=== PATIENT | female | born 1990 | race Caucasian/White ===

== ENCOUNTER 2016-08-07 11:55 | Emergency (ER) | payer MEDICAID ==
[2016-08-07 12:02] VITALS: BP 135/68
--- NOTE | 2016-08-07 12:12 | ER Document Report ---
ED Medical Screen (RME) - General Chief Complaint: Chemical Exposure in Eye Stated Complaint: CHEMICAL IN LEFT EYE/IRRITATION Time Seen by Provider: 08/07/16 12:08 Mode of Arrival: Ambulatory Information source: Patient TRAVEL OUTSIDE OF THE [place] IN LAST 30 DAYS: No - HPI Patient complains to provider of: Eye redness, possible chemical exposure Onset: Yesterday Notes: 08/07/16 12:11 Patient is a 26-year-old female who presents to the emergency room complaining of left eye swelling with discharge and pain, states yesterday while at work a chemical was being sprayed into a bucket and she thinks she felt a drop going to her eye, she rinsed it out quite well, however a few hours later she had some purulent discharge coming from the eye and when she woke up this morning her eye was swollen shut, she does also report that she has been feeling under the weather lately with a sore throat, body aches and chills - Related Data Allergies/Adverse Reactions: albuterol [From Ventolin] Allergy (Intermediate, Verified 06/16/15 20:23) welts albuterol sulfate [From Ventolin] Allergy (Intermediate, Verified 06/16/15 20:23 ) welts Past Medical History Pulmonary Medical History: Reports: Hx Asthma Renal/ Medical History: Denies: Hx Peritoneal Dialysis Past Surgical History: Reports: Hx Tonsillectomy - Immunizations Hx Diphtheria, Pertussis, Tetanus Vaccination: Yes Physical Exam - Vital signs Vitals: Temp Pulse Resp BP Pulse Ox 98.5 F 97 16 135/68 H 100 08/07/16 11:59 08/07/16 11:59 08/07/16 11:59 08/07/16 11:59 08/07/16 11:59 Course - Vital Signs Vital signs: Temp Pulse Resp BP Pulse Ox 98.5 F 97 16 135/68 H 100 08/07/16 11:59 08/07/16 11:59 08/07/16 11:59 08/07/16 11:59 08/07/16 11:59
[2016-08-07] MEDS ORDERED: TETRACAINE HCL 0.5% OPH SOLN 2 ML OS ONE (12:30)
[2016-08-07] MEDS ORDERED: POLYMYXIN B SULFATE/TMP OPH SOLN 10 ML OS ONE (13:17)
--- NOTE | 2016-08-07 13:21 | ER Document Report ---
ED Eye Complaint - General Chief Complaint: Chemical Exposure in Eye Stated Complaint: CHEMICAL IN LEFT EYE/IRRITATION Time Seen by Provider: 08/07/16 12:08 Mode of Arrival: Ambulatory Information source: Patient Notes: Patient is a 26-year-old female who presents to the ER today for left eye irritation, redness after exposure to a chemical called RJ8 that she was using to clean homes with yesterday. She states that it was just "in the air" and did not directly come in contact with her eye that she knows of, but hours after using it she started to get some irritation, redness and watering. She states that she went home and flushed out multiple times. She does wear glasses but no contacts. She states that she woke up today with green discharge in her eye was matted shut. She denies any fevers or chills. TRAVEL OUTSIDE OF THE [place] IN LAST 30 DAYS: No - Related Data Allergies/Adverse Reactions: albuterol [From Ventolin] Allergy (Intermediate, Verified 06/16/15 20:23) welts albuterol sulfate [From Ventolin] Allergy (Intermediate, Verified 06/16/15 20:23 ) welts Past Medical History - General Information source: Patient - Social History Smoking Status: Never Smoker Chew tobacco use (# tins/day): No Frequency of alcohol use: None Drug Abuse: None Family History: None Patient has suicidal ideation: No Patient has homicidal ideation: No Pulmonary Medical History: Reports: Hx Asthma Renal/ Medical History: Denies: Hx Peritoneal Dialysis Past Surgical History: Reports: Hx Tonsillectomy - Immunizations Hx Diphtheria, Pertussis, Tetanus Vaccination: Yes Hx Pneumococcal Vaccination: 05/23/12 Review of Systems - Review of Systems Constitutional: No symptoms reported EENT: See HPI Cardiovascular: No symptoms reported Respiratory: No symptoms reported Gastrointestinal: No symptoms reported Genitourinary: No symptoms reported Female Genitourinary: No symptoms reported Musculoskeletal: No symptoms reported Skin: No symptoms reported Hematologic/Lymphatic: No symptoms reported Neurological/Psychological: No symptoms reported Physical Exam - Vital signs Vitals: Temp Pulse Resp BP Pulse Ox 98.5 F 97 16 135/68 H 100 08/07/16 11:59 08/07/16 11:59 08/07/16 11:59 08/07/16 11:59 06/18/17 11:59 - Notes Notes: PHYSICAL EXAMINATION: GENERAL: Well-appearing and in no acute distress. HEAD: Atraumatic, normocephalic. EYES: Pupils equal round and reactive to light, extraocular movements intact, sclera anicteric, left conjunctivae erythematous, watering NECK: Normal range of motion, supple without lymphadenopathy LUNGS: CTAB and equal. No wheezes rales or rhonchi. HEART: Regular rate and rhythm without murmurs EXTREMITIES: Normal range of motion, no pitting edema. No cyanosis. NEUROLOGICAL: Cranial nerves grossly intact. Normal sensory/motor exams. PSYCH: Normal mood, normal affect. SKIN: Warm, Dry, normal turgor, no rashes or lesions noted Course - Re-evaluation Re-evalutation: 08/07/16 13:20 PH was 7 on litmus paper, of left eye, fluorescein stain revealed no defect, foreign body, patient says that it is not painful just irritated. I will place her on antibiotic eyedrops, she'll be sent home with the bottle from the ER, but with normal pH and since it has been over 24 hours since the injury I do not see the purpose of flushing it with Binu lens today. 08/07/16 13:22 - Vital Signs Vital signs: Temp Pulse Resp BP Pulse Ox 98.5 F 97 16 135/68 H 100 08/07/16 11:59 08/07/16 11:59 08/07/16 11:59 08/07/16 11:59 08/07/16 11:59 Procedures - Eye Procedure Left Time completed: 13:20 Eye Irrigated w/ Saline (ccs): 30 Alcaine Drops Administered: Yes Acular drops administered: Left Fluorescein applied: Left Antibiotic Oinment/Drps Admin: Left eye Discharge - Discharge Clinical Impression: Chemical exposure of eye Condition: Stable Disposition: HOME, SELF-CARE Instructions: Chemical in the Eye ([facility]) Additional Instructions: Return immediately for any new or worsening symptoms. Follow up with primary care provider, call tomorrow to make followup appointment. Forms: Return to Work Referrals: EFE SAUNDERS MD [Primary Care Provider] - Follow up as needed
== END 2016-08-07 13:48 | disposition home or self-care (01) ==
LOC: ER 11:55
DX: Z77.098 Contact with and (suspected) exposure to other hazardous, chiefly nonmedicinal, chemicals (principal); H57.8 Other specified disorders of eye and adnexa; J45.909 Unspecified asthma, uncomplicated; Z88.8 Allergy status to other drugs, medicaments and biological substances
CPT/HCPCS: 99283; J3490 ×2

== ENCOUNTER 2017-07-30 08:32 | Inpatient (IN) | payer MEDICAID ==
[2017-07-30] MEDS ORDERED: RINGERS SOLUTION,LACTATED 300 ML IV ONE (08:53)
[2017-07-30] MEDS ORDERED: DINOPROSTONE 10 MG VAGINAL INSERT.SR PV PRN (08:53)
[2017-07-30] MEDS ORDERED: OXYTOCIN/NORMAL SALINE 20 UNIT/1,000 ML RTUINJ IV PRN ×2 (08:53→18:14)
[2017-07-30] MEDS ORDERED: RINGERS SOLUTION,LACTATED 1,000 ML IV PRN (08:53)
[2017-07-30] MEDS ORDERED: OXYTOCIN/NORMAL SALINE 20 UNIT/1,000 ML RTUINJ ONE (10:02)
[2017-07-30 10:09] LABS: ABSOLUTE EOSINOPHILS # (AUTO) 0.1 10^3/uL (0.0-0.6); ABSOLUTE LYMPHOCYTES (AUTO) 2.8 10^3/uL (0.5-4.7); ABSOLUTE MONOCYTES (AUTO) 0.5 10^3/uL (0.1-1.4); ABSOLUTE NEUT (AUTO) 6.4 10^3/uL (1.7-8.2); BASOPHILS % (AUTO) 0.4 % (0-2); EOSINOPHILS % (AUTO) 0.6 % (0-6); HEMATOCRIT 30.8 % (36.0-47.0); HEMOGLOBIN 10.1 g/dL (12.0-15.5); LYMPHOCYTES % (AUTO) 28.6 % (13-45); MEAN CORPUSCULAR HEMOGLOBIN 26.1 pg (27.0-33.4); MEAN CORPUSCULAR VOLUME 79 fl (80-97); MONOCYTES % (AUTO) 4.9 % (3-13); PLATELET COUNT 151 10^3/uL (150-450); RED BLOOD COUNT 3.88 10^6/uL (3.72-5.28); RED CELL DISTRIBUTION WIDTH 15.1 % (11.5-14.0); SEGMENTED NEUTROPHILS % (AUTO) 65.5 % (42-78); TOTAL CELLS COUNTED % (AUTO) 100 %; WHITE BLOOD COUNT 9.8 10^3/uL (4.0-10.5)
[2017-07-30 10:15] LABS: APPEARANCE,URINE SLIGHTLY-CLOUDY; BILIRUBIN,URINE NEGATIVE (NEGATIVE); COLOR,URINE YELLOW; GLUCOSE, URINE NEGATIVE (NEGATIVE); KETONES,URINE NEGATIVE (NEGATIVE); LEUKOCYTE ESTERASE,URINE TRACE (NEGATIVE); NITRITE,URINE NEGATIVE (NEGATIVE); PROTEIN,URINE NEGATIVE (NEGATIVE); URINE SPECIFIC GRAVITY 1.018
[2017-07-30 10:33] LABS: URINE AMPHETAMINES SCREEN NEGATIVE; URINE BARBITURATES SCREEN NEGATIVE; URINE BENZODIAZEPINES SCREEN NEGATIVE; URINE COCAINE SCREEN NEGATIVE; URINE MARIJUANA (THC) SCREEN NEGATIVE; URINE METHADONE SCREEN NEGATIVE; URINE PHENCYCLIDINE SCREEN NEGATIVE
[2017-07-30] MEDS ORDERED: MISOPROSTOL 0.2 MG TABLET ONE (13:44)
[2017-07-30] MEDS ORDERED: LIDOCAINE 1% INJ-PF (10 MG/ML) 30 ML SDV ONE (13:44)
[2017-07-30] MEDS ORDERED: ZOLPIDEM TARTRATE 5 MG TABLET PO PRN (18:14)
[2017-07-30] MEDS ORDERED: DIBUCAINE 1% OINTMENT 28 GM TP PRN (18:14)
[2017-07-30] MEDS ORDERED: ACETAMINOPHEN WITH CODEINE #3 TABLET PO PRN ×2 (18:14)
[2017-07-30] MEDS ORDERED: MEASLES,MUMPS&RUBELLA VACC/PF 0.5 ML VIAL SUBCUT PRN (18:14)
[2017-07-30] MEDS ORDERED: DIPH/PERTUSS(ACELL)/TETANUS VAC/PF 0.5 ML SYR (>=10YO) IM PRN (18:14)
[2017-07-30] MEDS ORDERED: BENZOCAINE/MENTHOL AEROSOL SPRAY 56 ML TOP PRN (18:14)
[2017-07-30] MEDS: IBUPROFEN 800 MG TABLET PO SCH (20:56)
[2017-07-31] MEDS: IBUPROFEN 800 MG TABLET PO SCH ×3 (07:24→21:28)
[2017-07-31 08:27] LABS: HEMATOCRIT 28.9 % (36.0-47.0); HEMOGLOBIN 9.6 g/dL (12.0-15.5); MEAN CORPUSCULAR HEMOGLOBIN 26.3 pg (27.0-33.4); MEAN CORPUSCULAR HGB CONC 33.2 g/dL (32.0-36.0); MEAN CORPUSCULAR VOLUME 79 fl (80-97); PLATELET COUNT 153 10^3/uL (150-450); RED BLOOD COUNT 3.63 10^6/uL (3.72-5.28); RED CELL DISTRIBUTION WIDTH 15.3 % (11.5-14.0); WHITE BLOOD COUNT 16.2 10^3/uL (4.0-10.5)
--- NOTE | 2017-07-31 10:10 | PDOC PROGRESS REPORT ---
Subjective-OB Progress Note for:: 07/31/17 Subjective: Doing well, hsb at [facility], , no c/o, voiding, home in AM Physical Exam (OB) Vital Signs: Temp Pulse Resp BP Pulse Ox 98.0 F 74 16 125/76 98 07/31/17 08:10 07/31/17 08:10 07/31/17 08:10 07/31/17 08:10 07/31/17 08:10 Intake & Output 07/30/17 07/31/17 08/01/17 06:59 06:59 06:59 Weight 89.7 kg - PIH/Pre-Eclampsia Headache: Absent Epigastric Pain: No Visual Changes: No - Lochia Lochia Amount: Small 10-25 ml Lochia Color: Rubra/Red - Abdomen Description: Tender, Soft Hernia Present: No Fundal Description: Firm, Midline Fundal Height: u/u - u/2 Objective-Diagnostic Laboratory: 07/31/17 07:07 07/30/17 07/30/17 07/30/17 08:59 09:45 09:45 WBC 9.8 RBC 3.88 Hgb 10.1 L Hct 30.8 L MCV 79 L MCH 26.1 L MCHC 33.0 RDW 15.1 H Plt Count 151 Seg Neutrophils % 65.5 Lymphocytes % 28.6 Monocytes % 4.9 Eosinophils % 0.6 Basophils % 0.4 Absolute Neutrophils 6.4 Absolute Lymphocytes 2.8 Absolute Monocytes 0.5 Absolute Eosinophils 0.1 Absolute Basophils 0.0 Urine Color YELLOW Urine Appearance SLIGHTLY-CLOUDY Urine pH 6.0 Ur Specific [place] 1.018 Urine Protein NEGATIVE Urine Glucose (UA) NEGATIVE Urine Ketones NEGATIVE Urine Blood NEGATIVE Urine Nitrite NEGATIVE Ur Leukocyte Esterase TRACE H Blood Type A POSITIVE Antibody Screen NEGATIVE 07/31/17 07:07 WBC 16.2 H RBC 3.63 L Hgb 9.6 L Hct 28.9 L MCV 79 L MCH 26.3 L MCHC 33.2 RDW 15.3 H Plt Count 153 Seg Neutrophils % Lymphocytes % Monocytes % Eosinophils % Basophils % Absolute Neutrophils Absolute Lymphocytes Absolute Monocytes Absolute Eosinophils Absolute Basophils Urine Color Urine Appearance Urine pH Ur Specific [place] Urine Protein Urine Glucose (UA) Urine Ketones Urine Blood Urine Nitrite Ur Leukocyte Esterase Blood Type Antibody Screen Assessment and Plan(PN) - Assessment and Plan (1) History of PCR DNA positive for HSV2 Is this a current diagnosis for this admission?: Yes (2) Vaginal delivery Is this a current diagnosis for this admission?: Yes (3) Anemia affecting Qualifiers: Trimester: third trimester Qualified Code(s): O99.013 - Anemia complicating , third trimester Is this a current diagnosis for this admission?: Yes - Time Spent with Patient Time with patient: Less than 15 minutes Medications reviewed and adjusted accordingly: Yes - Disposition Anticipated Discharge: Home Within: within 24 hours
[2017-07-31] MEDS: DOCUSATE SODIUM 100 MG CAPSULE PO SCH ×2 (10:31→18:01)
[2017-07-31] MEDS: SENNOSIDES/DOCUSATE 8.6-50 MG 1 EACH TABLET PO SCH (10:31)
[2017-07-31] MEDS: PRENATAL VITAMIN W DHA CAPSULE PO SCH (10:32)
[2017-07-31] MEDS: FERROUS SULFATE 325 MG TABLET PO SCH ×2 (11:25→18:02)
[2017-08-01] MEDS: IBUPROFEN 800 MG TABLET PO SCH (05:47)
[2017-08-01 09:33] VITALS: BP 124/64
[2017-08-01] MEDS: FERROUS SULFATE 325 MG TABLET PO SCH (09:46)
--- NOTE | 2017-08-01 10:16 | PDOC DISCHARGE SUMMARY ---
Final Diagnosis Discharge Date: 08/01/17 - Final Diagnosis (1) Anemia affecting Is this a current diagnosis for this admission?: Yes (2) History of PCR DNA positive for HSV2 Is this a current diagnosis for this admission?: Yes (3) Vaginal delivery Is this a current diagnosis for this admission?: Yes Discharge Data - Discharge Medication Prescriptions: Docusate Sodium [Colace 100 mg Capsule] 100 mg PO BID #60 capsule Ibuprofen [Motrin 800 mg Tablet] 800 mg PO Q8 #60 tablet Home Medications: Vit/Iron Fum/Folic AC [ Tablet] 1 each PO DAILY 06/16/15 Valacyclovir HCl [Valtrex 500 mg Tablet] 500 mg PO BID 07/30/17 Docusate Sodium [Colace 100 mg Capsule] 100 mg PO BID #60 capsule 08/01/17 Ibuprofen [Motrin 800 mg Tablet] 800 mg PO Q8 #60 tablet 08/01/17 Gestational Age: 40 Reason(s) for Admission: Induction of Labor Procedures: NST Intrapartum Procedure(s): Spontaneous Vaginal Delivery - Data Baby 1 Male at 1 minute: 8 at 5 minutes: 9 Weight: 3.685 kg Home with Mother: Yes Complications: No - Diagnosis Test Laboratory: Temp Pulse Resp BP Pulse Ox 98 F 78 20 124/64 99 08/01/17 08:33 08/01/17 08:33 08/01/17 08:33 08/01/17 08:33 08/01/17 08:33 07/30/17 07/30/17 07/31/17 08:59 09:45 07:07 RBC 3.88 3.63 L Hgb 10.1 L 9.6 L Hct 30.8 L 28.9 L Urine Opiates Screen NEGATIVE - Discharge information/Instructions Discharge Activity: Activity As Tolerated, Pelvic Rest, No tub bath Discharge Diet: Regular Disposition: HOME, SELF-CARE Follow up with: [facility] in: 4, Weeks
[2017-08-01] MEDS: PRENATAL VITAMIN W DHA CAPSULE PO SCH (11:05)
[2017-08-01] MEDS: SENNOSIDES/DOCUSATE 8.6-50 MG 1 EACH TABLET PO SCH (11:05)
[2017-08-01] MEDS: DOCUSATE SODIUM 100 MG CAPSULE PO SCH (11:06)
--- NOTE | 2017-08-02 18:38 | Delivery Summary ---
Del Sum A-C Datetime Report Generated by CPN: 08/02/2017 18:38 DELIVERY PERSONNEL DELIVERY PERSONNEL: [id number] Delivery Doctor:: Archana Rodriguez CNM Labor and Delivery Nurse:: Rama Mckeon RNcoding clerk Nurse:: Lisseth Hurst RN Superintendent Recreation/BENCH INSPECTOR: Brien Douglas, DIRECTOR STUDENT UNION MATERNAL INFORMATION Delivery Anesthesia: None Medications After Delivery: Pitocin Drip 20 Units/1000ml NSS Maternal Complications: None Provider Comments: of vaible male over intact perineum, head, shoulders, and body delivered without difficulty, with spontaneous cry and respirations, to maternal abdomen, cord clamped X2 and cut free after 2 min delay, spontaneous delivery of placenta, appears intact, 3 VC, vagina and perineum inspected, no lacerations noted, mother and in stable condition, routine pp care. LABOR SUMMARY EDC: 07/30/2017 00:00 No. Babies in Womb: 1 Attempted: No Labor Anesthesia: None LABOR INFORMATION Reason for Induction: Other Reason for Induction- Other: elective, previous precip. Onset of Labor: 07/30/2017 12:52 Complete Dilatation: 07/30/2017 17:57 Cervical Ripening Agents: Other Other Ripening Agents: [place] Bul[place] Oxytocin: Induction Group B Beta Strep: Negative Antibiotics # of Doses: 0 Antibiotics Time of Last Dose: n/a Name of Antibiotic Given: n/a Steroids Given: None Reason Steroids Not Administered: Not Applicable MEMBRANES Membranes Rupture Method: Artificial Rupture of Membranes: 07/30/2017 12:52 Length of Rupture (hr): 5.17 Amniotic Fluid Color: Clear Amniotic Fluid Amount: Moderate Amniotic Fluid Odor: Normal STAGES OF LABOR Stage 1 hr: 5 Stage 1 min: 5 Stage 2 hr: 0 Stage 2 min: 5 Stage 3 hr: 0 Stage 3 min: 5 Total Time in Labor hr: 5 Total Time in Labor min: 15 VAGINAL DELIVERY Episiotomy: None Laceration #1: None Laceration Extension #1: N/A Laceration Repair: Not Applicable Sponge Count Correct: N/A Sharps Count Correct: N/A CSECTION DELIVERY Primary Indication: N/A Secondary Indication: N/A CSection Urgency: N/A CSection Incidence: N/A Labor: N/A Elective: N/A CSection Incision: N/A BABY A INFORMATION Delivery Date/Time: 07/30/2017 18:02 Method of Delivery: Vaginal Born in Route : No : N/A Forceps: N/A Vacuum Extraction: N/A Shoulder Dystocia : No PRESENTATION/POSITION BABY A Presentation: Cephalic Cephalic Presentation: Vertex Vertex Position: Right Occipital Anterior Breech Presentation: N/A PLACENTA INFORMATION BABY A Placenta Delivery Time : 07/30/2017 18:07 Placenta Method of Delivery: Spontaneous Placenta Status: Delivered SCORES BABY A Heart Rate 1 min: >100 bpm Resp Effort 1 min: Good Cry Reflex Irritability 1 min: Cough or Sneeze or Pulls Away Muscle Tone 1 min: Active Motion Color 1 min: Blue/Pale Resuscitation Effort 1 min: Tactile Stimulation SCORE 1 MIN: 8 Heart Rate 5 min: >100 bpm Resp Effort 5 min: Good Cry Reflex Irritability 5 min: Cough or Sneeze or Pulls Away Muscle Tone 5 min: Active Motion Color 5 min: Body [place], Extremities Blue Resuscitation Effort 5 min: Tactile Stimulation SCORE 5 MIN: 9 INFORMATION BABY A Gestational Age at Delivery: 40.0 Gestational Status: Full Term- 39- 40.6 Weeks Infant Outcome : Liveborn Condition : Stable Infant Sex: Male IDENTIFICATION BABY A Verification Date/Time: 07/30/2017 19:09 ID Band Number: [id number] Mother's Name Verified: Yes RN Verifying : K. Jef, RN Additional Verifying Personnel: ALyly Mckeon, RN WEIGHT/LENGTH BABY A Birthweight (gm): 3690 Infant Weight (lb): 8 Infant Weight (oz): 2 Length (in): 19.00 Length (cm): 48.26 CORD INFORMATION BABY A No. Cord Vessels: 3 Nuchal Cord : N/A Cord Blood Taken: Yes-For Storage (Mom's Blood type +) Suction: None ASSESSMENT BABY A Complications: None Physical Findings at Delivery: Within Normal Limits Infant Respirations: Appears Normal Skin to Skin: Yes Food And Beverage Service Manager/ALS Called : No Care By: H. Natali, RN Transferred To: Remains with Mother BABY B INFORMATION : N/A SIGNATURES Assignment: Renetta Roy MD Signature: with User ID: [email or web address] : with User ID: [email or web address]
--- NOTE | 2017-08-02 18:39 | Admission Physical ---
Datetime Report Generated by CPN: 08/02/2017 18:39 CURRENT ADMISSION Hx Assessment: The History has been Reviewed and is Current Chief Complaint: Uterine Contractions Indication for Induction: Not Applicable Admit Impression : Term, Intrauterine ; No Active Labor; Intact Membranes; Induction of Labor Admit Plan: Admit to Unit; Initiate Labor Augmentation Protocol ALLERGIES Medication Allergies: Yes Medication Allergies: albuterol sulfate/MO/welts (07/30/2017); albuterol/MO/welts (07/30/2017) Medication Allergies: albuterol sulfate/MO/welts (06/16/2015); albuterol/MO/welts (06/16/2015) Medication Allergies: Ventolin (hives) Latex: No Latex Allergies Food Allergies: None Environmental Allergies: None OBSTETRICAL HISTORY EDC: 07/30/2017 00:00 : 3 Para: 2 Term: 2 : 0 SAB: 0 IAB: 0 Ectopic: 0 Livin Cesareans: 0 VBACs: 0 Multiple Births: 0 Gestational Diabetes: No Rh Sensitization: No Incompetent Cervix: No YESSICA: No Infertility: No ART Treatment: No Uterine Anomaly: No IUGR: No Hx Previous C/S: No Macrosomia: No Hx Loss/Stillborn: No PIH: No Hx : No Placenta Previa/Abruption: No Depression/PP Depression: No PTL/PROM: No Post Hemorrhage: No Current Procedures: Ultrasound Obstetrical History Comments: G1- @ 39.3 wks viable female G2- @ 42 wks viable female G3- Current SEE RECORDS Alcohol: No Marijuana : No Cocaine: No Other Illicit Drugs: No Cigarettes: Never Smoker. [id number] MEDICAL HISTORY Diabetes: No Blood Transfusion: No Pulmonary Disease (Asthma, TB): Yes Breast Disease: No Hypertension: No Computer Assembler Surgery: No Heart Disease: No Hosp/Surgery: Yes Autoimmune Disorder: No Anesthetic Complications: No Kidney Disease: Yes Abnormal Pap Smear: Yes Neuro/Epilepsy: No Psychiatric Disorders: No Other Medical Diseases: No Hepatitis/Liver Disease: No Significant Family History: No Varicosities/Phlebitis: No Trauma/Violence : No Thyroid Dysfunction: No Medical History Comments: Hx: UTI and pyelo, anxiety no meds, asthma, tonsilectomy in 2001 INFECTIOUS HISTORY Gonorrhea: Yes Genital Herpes: Yes Chlamydia: No Tuberculosis: No Syphilis: No Hepatitis: No HIV/AIDS Exposure: No Rash or Viral Illness: No HPV: No Infectious History Comments: patient currently taking Valtrex, Positive Gonorrhea 2013 PHYSICAL EXAM General: Normal HEENT: Normal Neurologic: Normal Thyroid: Deferred Heart: Normal Lungs: Normal Breast: Normal Back: Normal Abdomen: Normal Genitourinary Exam: Normal Extremities: Normal DTRs: Normal Pelvic Type: Adequate Vital Signs: Reviewed VAGINAL EXAM Dilatation: 6 Dilatation: 1 Effacement: 60 Effacement: 80 Station: -1 Station: -2 Contraction Comments: 2-4 Contraction Comments: irregular MEMBRANES Membranes: Intact Membranes: Intact FETUS A EGA: 40.0 Monitoring: External US FHR Comments: awaiting nst Estimated Weight (gm): 4200 Presentation: Vertex Admit Comment: Admit to L _ D, labor augmentation See record HSV, on valtrex, no lesions GBS neg Cooks cath, pitocin anticipate PLANS FOR LABOR AND DELIVERY Labor and Delivery: None Pain Management: Natural Feeding Preference: Breast Benefit of Breast Feed Discussed: Yes INFORMED CONSENT Informed Consent Obtained: Vaginal Delivery Informed Consent Obtained: Induction of Labor Assignment: Renetta Roy MD Signature: with User ID: [email or web address] : with User ID: [email or web address]
--- NOTE | 2017-08-02 18:41 | Admission Physical ---
Datetime Report Generated by CPN: 08/02/2017 18:41 CURRENT ADMISSION Hx Assessment: The History has been Reviewed and is Current Chief Complaint: Uterine Contractions Indication for Induction: Not Applicable Admit Impression : Term, Intrauterine ; No Active Labor; Intact Membranes; Induction of Labor Admit Plan: Admit to Unit; Initiate Labor Augmentation Protocol ALLERGIES Medication Allergies: albuterol sulfate/MO/welts (07/30/2017); albuterol/MO/welts (07/30/2017) Medication Allergies: albuterol sulfate/MO/welts (06/16/2015); albuterol/MO/welts (06/16/2015) OBSTETRICAL HISTORY EDC: 07/30/2017 00:00 : 3 Para: 2 Term: 2 : 0 SAB: 0 IAB: 0 Ectopic: 0 Livin Cesareans: 0 VBACs: 0 Multiple Births: 0 PHYSICAL EXAM General: Normal HEENT: Normal Neurologic: Normal Thyroid: Deferred Heart: Normal Lungs: Normal Breast: Normal Back: Normal Abdomen: Normal Genitourinary Exam: Normal Extremities: Normal DTRs: Normal Pelvic Type: Adequate Vital Signs: Reviewed VAGINAL EXAM Dilatation: 1 Effacement: 80 Station: -2 Contraction Comments: irregular MEMBRANES Membranes: Intact FETUS A Monitoring: External US FHR Comments: awaiting nst Estimated Weight (gm): 4200 Presentation: Vertex Admit Comment: Admit to L _ D, labor augmentation See record HSV, on valtrex, no lesions GBS neg Cooks cath, pitocin anticipate INFORMED CONSENT Assignment: Renetta Roy, MD Signature: with User ID: [email or web address] : with User ID: [email or web address]
--- NOTE | 2017-08-02 18:46 | Admission Physical ---
Datetime Report Generated by CPN: 08/02/2017 18:46 CURRENT ADMISSION Hx Assessment: The History has been Reviewed and is Current Chief Complaint: Uterine Contractions Indication for Induction: Not Applicable Admit Impression : Term, Intrauterine ; No Active Labor; Intact Membranes; Induction of Labor Admit Plan: Admit to Unit; Initiate Labor Augmentation Protocol ALLERGIES Medication Allergies: albuterol sulfate/MO/welts (07/30/2017); albuterol/MO/welts (07/30/2017) Medication Allergies: albuterol sulfate/MO/welts (06/16/2015); albuterol/MO/welts (06/16/2015) OBSTETRICAL HISTORY EDC: 07/30/2017 00:00 : 3 Para: 2 Term: 2 : 0 SAB: 0 IAB: 0 Ectopic: 0 Livin Cesareans: 0 VBACs: 0 Multiple Births: 0 Gestational Diabetes: No Rh Sensitization: No Incompetent Cervix: No YESSICA: No Infertility: No ART Treatment: No Uterine Anomaly: No IUGR: No Hx Previous C/S: No Macrosomia: No Hx Loss/Stillborn: No PIH: No Hx : No Placenta Previa/Abruption: No Depression/PP Depression: No PTL/PROM: No Post Hemorrhage: No Current Procedures: Ultrasound Obstetrical History Comments: G1- @ 39.3 wks viable female G2- @ 42 wks viable female G3- Current MEDICAL HISTORY Diabetes: No Blood Transfusion: No Pulmonary Disease (Asthma, TB): Yes Breast Disease: No Hypertension: No 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 Heart Disease: No Hosp/Surgery: Yes Autoimmune Disorder: No Anesthetic Complications: No Kidney Disease: Yes Abnormal Pap Smear: Yes Neuro/Epilepsy: No Psychiatric Disorders: No Other Medical Diseases: No Hepatitis/Liver Disease: No Significant Family History: No Varicosities/Phlebitis: No Trauma/Violence : No Thyroid Dysfunction: No Medical History Comments: Hx: UTI and pyelo, anxiety no meds, asthma, tonsilectomy in 2001 INFECTIOUS HISTORY Gonorrhea: Yes Genital Herpes: Yes Chlamydia: No Tuberculosis: No Syphilis: No Hepatitis: No HIV/AIDS Exposure: No Rash or Viral Illness: No HPV: No Infectious History Comments: patient currently taking Valtrex, Positive Gonorrhea 2013 PHYSICAL EXAM General: Normal HEENT: Normal Neurologic: Normal Thyroid: Deferred Heart: Normal Lungs: Normal Breast: Normal Back: Normal Abdomen: Normal Genitourinary Exam: Normal Extremities: Normal DTRs: Normal Pelvic Type: Adequate Vital Signs: Reviewed VAGINAL EXAM Dilatation: 1 Effacement: 80 Station: -2 Contraction Comments: irregular MEMBRANES Membranes: Intact FETUS A Monitoring: External US FHR Comments: awaiting nst Estimated Weight (gm): 4200 Presentation: Vertex Admit Comment: Admit to L _ D, labor augmentation See record HSV, on valtrex, no lesions GBS neg Cooks cath, pitocin anticipate INFORMED CONSENT Assignment: Renetta Roy MD Signature: with User ID: [email or web address] : with User ID: [email or web address]
== END 2017-08-01 13:32 | disposition home or self-care (01) | DRG 774 ==
LOC: LC 08:32 → LR 08:44 → 2S 20:18
PROVIDERS: ADMIT Student in an Organized Health Care Education/Training Program; ATTEND Student in an Organized Health Care Education/Training Program
PROC: 10E0XZZ Delivery of Products of Conception, External Approach (ICD-10-PCS; principal; 2017-07-30)
PROC: 3E033VJ Introduction of Other Hormone into Peripheral Vein, Percutaneous Approach (ICD-10-PCS; 2017-07-30)
PROC: 10907ZC Drainage of Amniotic Fluid, Therapeutic from Products of Conception, Via Natural or Artificial Opening (ICD-10-PCS; 2017-07-30)
PROC: 4A1HXCZ Monitoring of Products of Conception, Cardiac Rate, External Approach (ICD-10-PCS; 2017-07-30)
DX: O99.02 Anemia complicating childbirth (principal); O98.32 Other infections with a predominantly sexual mode of transmission complicating childbirth; A60.04 Herpesviral vulvovaginitis; D64.9 Anemia, unspecified; O99.52 Diseases of the respiratory system complicating childbirth; J45.909 Unspecified asthma, uncomplicated; Z88.8 Allergy status to other drugs, medicaments and biological substances; Z3A.40 40 weeks gestation of pregnancy; Z37.0 Single live birth
CPT/HCPCS: 36415; 80307; 81005; 85025; 85027; 86592; 86850; 86900; 86901; C1726; J2590; J3490

== ENCOUNTER 2017-08-04 00:14 | Emergency (ER) | payer MEDICAID ==
--- NOTE | 2017-08-04 01:22 | ER Document Report ---
ED Breast Problem - General Mode of Arrival: Ambulatory Information source: Patient Notes: Patient is a 27 year old female 5 days post presents to the emergency department complaining of left breast pain and redness. Patient states she is currently breast feeding and has been unable to produce a lot of milk from the left breast, which is also accompanied by pain. Patient states initially she was able to produce approximately 1 ounce of milk from her left breast but is only now able to express a few drops. She further states she is normally able to produce 2 ounces of milk from her right breast. Patient also mentions her nipples being so enlarged that she is currently unable to fit her nipples in her sons mouth, therefore she is primarily pumping. Patient denies any fevers. TRAVEL OUTSIDE OF THE [place] IN LAST 30 DAYS: No <ADAM VELASCO - Last Filed: 08/04/17 04:34> <EVELIN FIGUEREDO - Last Filed: 08/04/17 04:48> - General Chief Complaint: Breast Problem Stated Complaint: LEFT BREAST PAIN Time Seen by Provider: 08/04/17 01:01 - Related Data Allergies/Adverse Reactions: albuterol [From Ventolin] Allergy (Intermediate, Verified 07/30/17 09:06) welts albuterol sulfate [From Ventolin] Allergy (Intermediate, Verified 07/30/17 09:06 ) mark Past Medical History - General Information source: Patient - Social History Smoking Status: Unknown if Ever Smoked Family History: None Patient has suicidal ideation: No Patient has homicidal ideation: No Pulmonary Medical History: Reports: Hx Asthma Renal/ Medical History: Denies: Hx Peritoneal Dialysis Past Surgical History: Reports: Hx Tonsillectomy - Immunizations Hx Diphtheria, Pertussis, Tetanus Vaccination: Yes Hx Pneumococcal Vaccination: 05/23/12 <ADAM VELASCO - Last Filed: 08/04/17 04:34> Review of Systems - Review of Systems Constitutional: No symptoms reported EENT: No symptoms reported Cardiovascular: No symptoms reported Respiratory: No symptoms reported Gastrointestinal: No symptoms reported Genitourinary: No symptoms reported Musculoskeletal: See HPI Skin: See HPI Hematologic/Lymphatic: No symptoms reported Neurological/Psychological: No symptoms reported -: Yes All other systems reviewed and negative <ADAM VELASCO - Last Filed: 08/04/17 04:34> Physical Exam - Vital signs Vitals: Temp Pulse Resp BP Pulse Ox 98.7 F 91 18 154/92 H 98 08/04/17 00:20 08/04/17 00:20 08/04/17 00:20 08/04/17 00:20 08/04/17 00:20 - Notes Notes: GENERAL: Alert, interacts well. No acute distress. HEAD: Normocephalic, atraumatic. EYES: Pupils equal, round, and reactive to light. Extraocular movements intact. ENT: Oral mucosa moist, tongue midline. NECK: Full range of motion. Supple. Trachea midline. CHEST: No respiratory distress. Left breast is tender to palpation, minimal milk is expressed, there is erythema surrounding the entire areola,no streaking. Left breast is semi-firm. Right breast has a small amount of erythema medially. No evidence of a breast abscess. EXTREMITIES: Moves all 4 extremities spontaneously. NEUROLOGICAL: Alert and oriented x3. Normal speech. PSYCH: Normal affect, normal mood. SKIN: Warm, dry, normal turgor. No rashes or lesions noted. <ADAM VELASCO - Last Filed: 08/04/17 04:34> - Vital signs Vitals: Temp Pulse Resp BP Pulse Ox 98.7 F 91 18 154/92 H 98 08/04/17 00:20 08/04/17 00:20 08/04/17 00:20 08/04/17 00:20 08/04/17 00:20 <EVELIN FIGUEREDO - Last Filed: 08/04/17 04:48> Course - Vital Signs Vital signs: Temp Pulse Resp BP Pulse Ox 98.7 F 91 18 154/92 H 98 08/04/17 00:20 08/04/17 00:20 08/04/17 00:20 08/04/17 00:20 08/04/17 00:20 <ADAM VELASCO - Last Filed: 08/04/17 04:34> - Re-evaluation Re-evalutation: 08/04/17 01:26 Consistent with mastitis, discussed techniques for easing the pain of breast- feeding, encouraged frequent pumping and breast-feeding, started Keflex. Discharged home. No evidence of breast abscess. - Vital Signs Vital signs: Temp Pulse Resp BP Pulse Ox 98.7 F 91 18 154/92 H 98 08/04/17 00:20 08/04/17 00:20 08/04/17 00:20 08/04/17 00:20 08/04/17 00:20 <EVELIN FIGUEREDO - Last Filed: 08/04/17 04:48> Scribe Documentation - Scribe Written by Annaibe:: Maninder Jernigan, 08/04/2017 01:53 acting as scribe for :: Denise <ADAM VELASCO - Last Filed: 08/04/17 04:34> Discharge <ADAM VELASCO - Last Filed: 08/04/17 04:34> - Discharge Scribe Attestation: 08/04/17 04:48 I personally performed the services described in the documentation, reviewed and edited the documentation which was dictated to the scribe in my presence, and it accurately records my words and actions. <EVELIN FIGUEREDO - Last Filed: 08/04/17 04:48> - Discharge Clinical Impression: Mastitis Condition: Stable Disposition: HOME, SELF-CARE Additional Instructions: Mastitis (Breast Infection) You have an infection in your breast, called mastitis. This is due to bacteria invading the breast through the milk ducts. Mastitis can be serious, and must be treated carefully. Antibiotics are required. Usually, warm packs are recommended. Some improvement should be evident within 24 to 36 hours. If you're breast-feeding, you should continue to nurse the baby. The baby won't be harmed by the milk from the infected breast. If you stop nursing, the breast must be pumped. If milk builds up in the breast, the infection can dramatically worsen! Follow-up care is important to check for abscess (boil) formation or resistant infection. If you develop fever, chills, or if the area of infection is becoming rapidly more swollen or painful, call the doctor at once. Please use ibuprofen (Motrin or Advil) 600-800 mg every 8 hours as needed for pain or fever. You may also use acetaminophen (Tylenol) 1000 mg every 4-6 hours as needed for pain or fever. Please be aware that many medications contain acetaminophen, do not exceed a total of 1000 mg of acetaminophen every 6 hours. Prescriptions: Cephalexin Monohydrate [Keflex 500 mg Capsule] 500 mg PO Q6H 7 Days capsule Referrals: ROSE MARY DAMON MD [Primary Care Provider] - Follow up in 3-5 days
[2017-08-04] MEDS ORDERED: CEPHALEXIN 500 MG CAPSULE PO ONE (01:24)
[2017-08-04 01:35] VITALS: BP 132/76
== END 2017-08-04 01:34 | disposition home or self-care (01) ==
LOC: ER 00:14
DX: N61.0 Mastitis without abscess (principal); N64.4 Mastodynia; J45.909 Unspecified asthma, uncomplicated
CPT/HCPCS: 99283

== ENCOUNTER 2018-07-22 21:23 | Emergency (ER) | payer MEDICAID ==
[2018-07-22 22:06] LABS: AMORPHOUS SEDIMENT,URINE TRACE /HPF; APPEARANCE,URINE CLOUDY; BILIRUBIN,URINE NEGATIVE (NEGATIVE); COLOR,URINE YELLOW; GLUCOSE, URINE NEGATIVE (NEGATIVE); KETONES,URINE NEGATIVE (NEGATIVE); LEUKOCYTE ESTERASE,URINE MODERATE (NEGATIVE); NITRITE,URINE NEGATIVE (NEGATIVE); PROTEIN,URINE NEGATIVE (NEGATIVE); URINE SPECIFIC GRAVITY 1.024; UROBILINOGEN,URINE NEGATIVE mg/dL (<2.0)
--- NOTE | 2018-07-23 00:23 | ER Document Report ---
HPI - HPI Time Seen by Provider: 07/23/18 00:17 Pain Level: 4 Context: Patient is a 27-year-old female who presents emergency department with complaints of dysuria. She has had her symptoms for the past 3 days. She states that she also has thick pink discharge from her vagina. She has a past history of urinary tract infections in the past. She denies any abdominal pain or pelvic pain. She does take Valtrex as needed. Denies any other past medical history. Does not take any other medications. - CONSTITUTIONAL Constitutional: DENIES: Fever, Chills - EENT EENT: DENIES: Sore Throat, Ear Pain - NEURO Neurology: DENIES: Headache, Weakness - RESPIRATORY Respiratory: DENIES: Trouble Breathing, Coughing - GASTROINTESTINAL Gastrointestinal: DENIES: Abdominal Pain, Nausea, Patient vomiting, Diarrhea - URINARY Urinary: REPORTS: Dysuria - REPRODUCTIVE Reproductive: DENIES: : - MUSCULOSKELETAL Musculoskeletal: DENIES: Extremity pain - DERM Skin Color: Normal Skin Problems: None Past Medical History - General Information source: Patient - Social History Smoking Status: Never Smoker Family History: None Pulmonary Medical History: Reports: Hx Asthma Renal/ Medical History: Denies: Hx Peritoneal Dialysis Past Surgical History: Reports: Hx Tonsillectomy - Immunizations Hx Diphtheria, Pertussis, Tetanus Vaccination: Yes Hx Pneumococcal Vaccination: 05/23/12 Vertical Provider Document - CONSTITUTIONAL Agree With Documented VS: Yes Exam Limitations: No Limitations General Appearance: No Apparent Distress - INFECTION CONTROL TRAVEL OUTSIDE OF THE [place] IN LAST 30 DAYS: No - HEENT HEENT: Atraumatic, Normocephalic, PERRLA - NECK Neck: Normal Inspection - RESPIRATORY Respiratory: Breath Sounds Normal, No Respiratory Distress - CARDIOVASCULAR Cardiovascular: Regular Rate, Regular Rhythm Pulses: Normal: Radial - GI/ABDOMEN Gastrointestinal: Abdomen Soft, Abdomen Non-Tender - MUSCULOSKELETAL/EXTREMETIES Musculoskeletal/Extremeties: FROM - NEURO Level of Consciousness: Awake, Alert, Appropriate - DERM Integumentary: Warm, Dry Course - Re-evaluation Re-evalutation: 07/23/18 00:23 Patient presents with symptoms consistent with an acute cystitis. Vitals wnl. No history of fever, flank pain, or constitution symptoms to suggest ascending infection at this time. Patient is well in appearance, tolerating oral intake without difficulty. No focal abdominal tenderness to suggest acute appendicitis, biliary pathology, acute pancreatitis, tubo-ovarian abscesses, or pelvic inflammatory disease. Patient will be started on antibiotics at this time. A culture has been sent. They will be discharged with return precautions and follow-up recommendations. - Vital Signs Vital signs: Temp Pulse Resp BP Pulse Ox 98.5 F 83 18 138/62 H 98 07/22/18 21:34 07/22/18 21:34 07/22/18 21:34 07/22/18 21:34 07/22/18 21:34 - Laboratory Laboratory results interpreted by me: 07/22/18 21:44 Ur Leukocyte Esterase MODERATE H Discharge - Discharge Clinical Impression: Urinary tract infection Qualifiers: Urinary tract infection type: acute cystitis Hematuria presence: without hematuria Qualified Code(s): N30.00 - Acute cystitis without hematuria Condition: Stable Disposition: HOME, SELF-CARE Instructions: Cephalexin ([facility]), Urinary Tract Infection ([facility]) Prescriptions: Cephalexin [Keflex] 500 mg PO BID #14 capsule Referrals: ROSE MARY DAMON MD [ACTIVE STAFF] - Follow up in 3-5 days
[2018-07-23 02:14] VITALS: BP 130/58
== END 2018-07-23 00:30 | disposition home or self-care (01) ==
LOC: ER 21:23
DX: N30.00 Acute cystitis without hematuria (principal); R30.0 Dysuria; N89.8 Other specified noninflammatory disorders of vagina; J45.909 Unspecified asthma, uncomplicated
CPT/HCPCS: 81001; 81025; 87086; 99283

== ENCOUNTER 2019-04-02 08:55 | Emergency (ER) | payer MEDICAID ==
[2019-04-02] MEDS ORDERED: LEVALBUTEROL HCL NEB 1.25 MG/3 ML AMPUL NEB ONE (10:07)
--- NOTE | 2019-04-02 10:13 | ER Document Report ---
HPI - HPI Patient complains to provider of: chest pain Time Seen by Provider: 04/02/19 10:02 Onset: Yesterday Onset/Duration: Sudden Quality of pain: Achy Pain Level: 3 Context: 28-year-old female with history of asthma presents emergency department with complaints that she experience chest pain when taking a deep breath. She reports it was really bad last night when she was laying down. She reports she did feel nauseated but declines antinausea at this time. Denies fever vomiting diarrhea. Reports she has not used an inhaler in many many years. Patient repo rts history of allergy to albuterol but has used an inhaler. She is not sure what the allergy is. Associated Symptoms: Nausea Exacerbated by: Supine Relieved by: Denies Similar symptoms previously: No Recently seen / treated by doctor: No - REPRODUCTIVE Reproductive: DENIES: : Past Medical History - General Information source: Patient Last Menstrual Period: last month - Social History Smoking Status: Never Smoker Frequency of alcohol use: Occasional Drug Abuse: None Occupation: [employer] Lives with: Family Family History: None Patient has suicidal ideation: No Patient has homicidal ideation: No Pulmonary Medical History: Reports: Hx Asthma Renal/ Medical History: Denies: Hx Peritoneal Dialysis Past Surgical History: Reports: Hx Tonsillectomy - Immunizations Hx Diphtheria, Pertussis, Tetanus Vaccination: Yes Hx Pneumococcal Vaccination: 05/23/12 Vertical Provider Document - CONSTITUTIONAL Agree With Documented VS: Yes Exam Limitations: No Limitations General Appearance: WD/WN, No Apparent Distress - INFECTION CONTROL TRAVEL OUTSIDE OF THE [place] IN LAST 30 DAYS: No - HEENT HEENT: Atraumatic, Normocephalic. negative: Conjuctival Injection - NECK Neck: Normal Inspection, Supple. negative: Lymphadenopathy-Left, Lymphadenopathy-Right - RESPIRATORY Respiratory: Breath Sounds Normal, No Respiratory Distress, Chest Non-Tender - CARDIOVASCULAR Cardiovascular: Regular Rate, Regular Rhythm, No Murmur - MUSCULOSKELETAL/EXTREMETIES Musculoskeletal/Extremeties: ATA VENTURA - NEURO Level of Consciousness: Awake, Alert, Appropriate Motor/Sensory: No Motor Deficit - DERM Integumentary: Warm, Dry Course - Re-evaluation Re-evalutation: 04/02/19 11:02 Chest X-Ray 04/02/19 10:07 IMPRESSION: NO ACUTE RADIOGRAPHIC FINDING IN THE CHEST. 04/02/19 11:04 Chest x-ray negative EKG was sinus rhythm. Patient instructed on results instructed follow-up with primary care within 1 week return for concerns worsening pain difficulty breathing. She verbalized understanding to all instructions. - Vital Signs Vital signs: Temp Pulse Resp BP Pulse Ox 98.7 F 91 16 116/67 98 04/02/19 09:00 04/02/19 09:00 04/02/19 09:00 04/02/19 09:00 04/02/19 09:00 - Diagnostic Test Radiology reviewed: Reports reviewed - EKG Interpretation by Me EKG shows normal: Sinus rhythm Rate: Normal Rhythm: NSR Additional EKG results interpreted by me: 04/02/19 11:[address] elevation or T wave inversion QTC 393 Discharge - Discharge Clinical Impression: Chest pain with deep breath Condition: Stable Disposition: HOME, SELF-CARE Instructions: Chest Pain of Unclear Cause ([facility]) Additional Instructions: *You have been evaluated for chest pain with deep breath *Your chest x-ray was negative for an acute injury *Cough and deep breathe at least once an hour *Take Tylenol or Motrin as indicated for pain *Follow up with a primary care provider within 1 week for recheck *Return to ED for worsening condition, changes, needs, difficulty breathing, concerns Forms: Return to Work
--- NOTE | 2019-04-02 11:01 | RADIOLOGY REPORT (SQ) ---
EXAM DESCRIPTION: CHEST 2 VIEWS COMPLETED DATE/TIME: 04/02/2019 10:45 am REASON FOR STUDY: pain with laying down COMPARISON: None. EXAM PARAMETERS: NUMBER OF VIEWS: two views TECHNIQUE: Digital Frontal and Lateral radiographic views of the chest acquired. RADIATION DOSE: NA LIMITATIONS: none FINDINGS: LUNGS AND PLEURA: No opacities, masses or pneumothorax. No pleural effusion. MEDIASTINUM AND HILAR STRUCTURES: No masses or contour abnormalities. HEART AND VASCULAR STRUCTURES: Heart normal size. No evidence for failure. BONES: No acute findings. HARDWARE: None in the chest. OTHER: No other significant finding. IMPRESSION: NO ACUTE RADIOGRAPHIC FINDING IN THE CHEST. TECHNICAL DOCUMENTATION: JOB ID: [id number] 2010 [employer]- All Rights Reserved Reading location - IP/workstation name: [email or web address]
[2019-04-02 11:21] VITALS: BP 125/66
--- NOTE | 2019-04-02 17:16 | EKG REPORT ---
SEVERITY:- NORMAL ECG - SINUS RHYTHM : Confirmed by: Polo Graham MD 02-Apr-2019 17:15:34
== END 2019-04-02 11:20 | disposition home or self-care (01) ==
LOC: ER 08:55
DX: R07.1 Chest pain on breathing (principal); R11.0 Nausea; J45.909 Unspecified asthma, uncomplicated; Z88.8 Allergy status to other drugs, medicaments and biological substances
CPT/HCPCS: 93005; 94640; 99284; 71046; 93010; J3490

== ENCOUNTER 2019-04-10 20:26 | Emergency (ER) | payer MEDICAID ==
[2019-04-10] MEDS ORDERED: ACETAMINOPHEN 325 MG TABLET PO ONE (21:18)
--- NOTE | 2019-04-10 21:20 | ER Document Report ---
ED Medical Screen (RME) - General Chief Complaint: Flu Symptoms Stated Complaint: FLU SYMPTOMS Time Seen by Provider: 04/10/19 21:14 Mode of Arrival: Ambulatory Information source: Patient Notes: Otherwise healthy 28-year-old female presenting to the emergency department chief complaint of cough, congestion, fever and vomiting. Patient states cough and congestion ongoing for at least 1 week, and vomiting started today. Denies any chronic medical conditions, states that she was seen here 1 week ago they told her she may have pneumonia but wanted her to return if symptoms worsen. She states that did not give her any prescriptions. Lung sounds clear and equal bilaterally. Patient appears to not feel well but does not appear toxic. I have greeted and performed a rapid initial assessment of this patient. A comprehensive ED assessment and evaluation of the patient, analysis of test results and completion of the medical decision making process will be conducted by additional ED providers. I have specifically instructed the patient or family members with the patient to immediately return to any nursing staff should anything change in the patient's condition or with their chief complaint. TRAVEL OUTSIDE OF THE [place] IN LAST 30 DAYS: No - Related Data Allergies/Adverse Reactions: albuterol [From Ventolin] Allergy (Intermediate, Verified 04/10/19 21:09) welts albuterol sulfate [From Ventolin] Allergy (Intermediate, Verified 04/10/19 21:09) mark Past Medical History Pulmonary Medical History: Reports: Hx Asthma Renal/ Medical History: Denies: Hx Peritoneal Dialysis Past Surgical History: Reports: Hx Tonsillectomy - Immunizations Hx Diphtheria, Pertussis, Tetanus Vaccination: Yes Physical Exam - Vital signs Vitals: Temp Pulse Resp BP Pulse Ox 98.7 F 88 18 126/64 H 100 04/10/19 20:42 04/10/19 20:42 04/10/19 20:42 04/10/19 20:42 04/10/19 20:42 Course - Vital Signs Vital signs: Temp Pulse Resp BP Pulse Ox 98.7 F 88 18 126/64 H 100 04/10/19 20:42 04/10/19 20:42 04/10/19 20:42 04/10/19 20:42 04/10/19 20:42
[2019-04-10 21:51] LABS: APPEARANCE,URINE CLEAR; BILIRUBIN,URINE NEGATIVE (NEGATIVE); COLOR,URINE YELLOW; GLUCOSE, URINE NEGATIVE (NEGATIVE); KETONES,URINE 20 mg/dL (NEGATIVE); PROTEIN,URINE NEGATIVE (NEGATIVE); URINE SPECIFIC GRAVITY 1.018; UROBILINOGEN,URINE NEGATIVE mg/dL (<2.0)
[2019-04-10 22:11] LABS: A TYPE INFLUENZA AG NEGATIVE (NEGATIVE); B INFLUENZA AG POSITIVE (NEGATIVE)
--- NOTE | 2019-04-10 22:23 | RADIOLOGY REPORT (SQ) ---
EXAM DESCRIPTION: XR CHEST 2 VIEWS COMPLETED DATE/TME: 04/10/2019 21:18 CLINICAL HISTORY: 28 years, Female, cough/sob/fever COMPARISON: 04/02/2019 chest NUMBER OF VIEWS: 2 TECHNIQUE: 2 views of the chest LIMITATIONS: None. FINDINGS: Heart size normal. Lungs clear. No pneumothorax IMPRESSION: Negative chest copyright 2010 [employer]- All Rights Reserved
[2019-04-11] MEDS ORDERED: ONDANSETRON ODT 4 MG TAB (6 TAB/ER DISP) PO PRN (01:53)
[2019-04-11] MEDS ORDERED: IBUPROFEN 800 MG TABLET PO ONE (01:54)
--- NOTE | 2019-04-11 01:56 | ER Document Report ---
ED Flu Like - General Chief Complaint: Flu Symptoms Stated Complaint: FLU SYMPTOMS Time Seen by Provider: 04/10/19 21:14 Primary Care Provider: KRISTIN MOSS PA [Primary Care Provider] - Follow up as needed Mode of Arrival: Ambulatory Notes: Patient is a 28-year-old female that comes emergency department for chief complaint of cough, chest congestion, fever, vomiting. She states she has been having chills and symptoms for the past 2 to 3 days, she started vomiting several times today. She has not had the influenza vaccine. She denies any obvious sick contacts but she does work at a [employer]. She denies specific abdominal or chest pain. Patient denies smoking, any diagnosed medical history, any daily medications. She has had a tonsillectomy. TRAVEL OUTSIDE OF THE [place] IN LAST 30 DAYS: No - Related Data Allergies/Adverse Reactions: albuterol [From Ventolin] Allergy (Intermediate, Verified 04/10/19 21:09) welts albuterol sulfate [From Ventolin] Allergy (Intermediate, Verified 04/10/19 21:09) mark Past Medical History - General Information source: Patient - Social History Smoking Status: Never Smoker Frequency of alcohol use: None Drug Abuse: None Lives with: Family Family History: None Patient has suicidal ideation: No Patient has homicidal ideation: No Pulmonary Medical History: Reports: Hx Asthma Renal/ Medical History: Denies: Hx Peritoneal Dialysis Past Surgical History: Reports: Hx Tonsillectomy - Immunizations Hx Diphtheria, Pertussis, Tetanus Vaccination: Yes Hx Pneumococcal Vaccination: 05/23/12 Review of Systems - Review of Systems Constitutional: See HPI EENT: See HPI Cardiovascular: No symptoms reported Respiratory: See HPI Gastrointestinal: See HPI Genitourinary: No symptoms reported Female Genitourinary: No symptoms reported Musculoskeletal: No symptoms reported Skin: No symptoms reported Hematologic/Lymphatic: No symptoms reported Neurological/Psychological: No symptoms reported Physical Exam - Vital signs Vitals: Temp Pulse Resp BP Pulse Ox 98.7 F 88 18 126/64 H 100 04/10/19 20:42 04/10/19 20:42 04/10/19 20:42 04/10/19 20:42 04/10/19 20:42 - Notes Notes: GENERAL: Dark circles under her eyes, slightly ill-appearing but nontoxic, alert and interactive HEAD: Normocephalic, atraumatic. EYES: Pupils equal, round, and reactive to light. Extraocular movements intact. ENT: Oral mucosa moist, tongue midline. Oropharynx unremarkable. Airway patent. Mild rhinorrhea, no nasal septal hematoma, TM's intact. NECK: Full range of motion. Supple. Trachea midline. LUNGS: Clear to auscultation bilaterally, no wheezes, rales, or rhonchi. No respiratory distress. Occasional mild cough HEART: Regular rate and rhythm. No murmur ABDOMEN: Soft, non-tender. Non-distended. Bowel sounds present in all 4 quadrants. GENITOURINARY: Deferred EXTREMITIES: Moves all 4 extremities spontaneously. No edema, normal radial and dorsalis pedis pulses bilaterally. No cyanosis. BACK: no cervical, thoracic, lumbar midline tenderness. No saddle anesthesia, normal distal neurovascular exam. Moves all extremities in full range of motion. NEUROLOGICAL: Alert and oriented x3. Normal speech. Cranial nerves II through XII grossly intact. PSYCH: Normal affect, normal mood. SKIN: Warm, dry, normal turgor. No rashes or lesions noted. Course - Re-evaluation Re-evalutation: Patient with congestion, occasional mild cough, however her abdomen is soft, her lungs are clear, she is quite well-appearing. Vital signs unremarkable. Urinalysis unremarkable, negative. Influenza B is positive. Patient states this is her third day with symptoms. I did discuss Tamiflu but patient declined this. She is requesting nausea medication and discharge. Patient has been tolerating p.o. without difficulty. She was provided with this. I discussed expectations, follow-up, return precautions. Patient states understanding and agreement. Stable at time of discharge. - Vital Signs Vital signs: Temp Pulse Resp BP Pulse Ox 97.8 F 73 15 114/64 100 04/11/19 02:26 04/11/19 02:26 04/11/19 02:26 04/11/19 02:26 04/11/19 02:26 - Laboratory Laboratory results interpreted by me: 04/10/19 21:20 Urine Ketones 20 H Discharge - Discharge Clinical Impression: Influenza B Condition: Stable Disposition: HOME, SELF-CARE Additional Instructions: You are positive for influenza B. This is a viral illness that takes time to resolve. Rest, drink plenty of fluids, take Zofran if needed for nausea. Take 600 mg of ibuprofen and 1000 mg of Tylenol every 6 hours for chills, body aches, fever. Follow-up with primary care. Return if you worsen including uncontrolled vomiting, difficulty breathing, or any other concerning or worsening symptoms. Prescriptions: Ondansetron [Zofran Odt 4 mg Tablet] 1 - 2 tab PO Q4H PRN #15 tab.rapdis PRN Reason: For Nausea/Vomiting Forms: Return to Work Referrals: KRISTIN MOSS PA [Primary Care Provider] - Follow up as needed
[2019-04-11 02:28] VITALS: BP 114/64
== END 2019-04-11 02:25 | disposition home or self-care (01) ==
LOC: ER 20:26
DX: J10.1 Influenza due to other identified influenza virus with other respiratory manifestations (principal); R05 Cough; R09.89 Other specified symptoms and signs involving the circulatory and respiratory systems; R50.9 Fever, unspecified; R11.10 Vomiting, unspecified; J34.89 Other specified disorders of nose and nasal sinuses; J45.909 Unspecified asthma, uncomplicated; Z88.8 Allergy status to other drugs, medicaments and biological substances
CPT/HCPCS: 81025; 81001; 87804; 71046; J3490 ×2; 99283